=== PATIENT | female | born 1960 | race Caucasian/White ===

== ENCOUNTER 2019-03-01 19:04 | Emergency (ER) | payer OTHER ==
[~2019-03-01] VITALS: Ht 162.5 cm; Wt 108.9 kg
[~2019-03-01 19:04] MED LIST: BACTRIM DS 8001 TA1 PO; CITALOPRAM20 MG PO; KETOROLAC10 MG PO; MEDROL DOSEPAK4 MG PO; MOTRIN800 MG PO; Motrin,Rufen800 MG PO; PYRIDIUM200 MG PO; Synthroid,Levo25 MCG; TRAMADOL HCL50 MG PO; VITAMIN D1000 IU
== END 2019-03-01 21:00 | disposition home or self-care (01) ==
LOC: ED 19:04
DX: M79.671 Pain in right foot (principal); Z91.041 Radiographic dye allergy status; Z79.2 Long term (current) use of antibiotics; Z79.899 Other long term (current) drug therapy; X50.1XXA Overexertion from prolonged static or awkward postures, initial encounter; Y93.89 Activity, other specified; Y92.89 Other specified places as the place of occurrence of the external cause; Y99.8 Other external cause status

== ENCOUNTER 2020-06-13 22:11 | Emergency (ER) | payer OTHER ==
[~2020-06-13] VITALS: Ht 162.5 cm; Wt 104.3 kg
[2020-06-13 22:31] LABS: BILIRUBIN Negative (Negative); BLOOD Negative (Negative); CLARITY Cloudy (Clear); COLOR Yellow (Yellow); GLUCOSE Negative (Negative); KETONE Trace (Negative); LEUKO ESTERASE 2+ (Negative); NITRITE Negative (Negative); SPECIFIC GRAVITY >= 1.030 (1.001-1.030)
[2020-06-13 22:38] LABS: BASO % 0.3 % (0.0-1.0); EOS # 0.1 10*3/uL (0.0-0.4); EOS % 0.8 % (1.0-4.0); HEMATOCRIT 41.9 % (37.0-47.0); LYMPH # 2.2 10*3/uL (1.3-4.4); LYMPH % 35.6 % (27.0-41.0); MEAN CELL VOLUME 94.4 fl (81.0-99.0); MEAN CORPUSCULAR HGB 30.2 pg (27.0-31.0); MEAN PLATELET VOLUME 11.9 fl (9.6-12.3); MONO # 0.4 10*3/uL (0.1-1.0); MONO % 6.2 % (3.0-9.0); NEUT # 3.5 10*3/uL (2.3-7.9); NEUT % 56.9 % (47.0-73.0); PLATELET COUNT AUTOMATED 167 10*3/uL (130-400); RED BLOOD COUNT 4.44 10*6/uL (4.10-5.10); RED CELL DISTRI WIDTH 12.7 % (0-14.5); WHITE BLOOD COUNT 6.2 10*3/uL (4.8-10.8)
[2020-06-13 22:43] LABS: BACTERIA 1+; EPITHELIAL CELLS 21-30; WBC 16-20 wbc/hpf (0-5)
[2020-06-13 22:55] LABS: ALBUMIN 3.3 gm/dl (3.1-4.5); ALKALINE PHOSPHATASE 80 U/L (45-117); BUN 19 mg/dl (7-24); CHLORIDE 106 mmol/L (98-107); CREATININE 0.79 mg/dL (0.55-1.02); LIPASE 102 U/L (73-393); SGOT/AST 85 IU/L (3-35); SGPT/ALT 162 U/L (12-78); SODIUM 140 mmol/L (136-145); TOTAL PROTEIN 7.8 gm/dL (6.4-8.2)
== END 2020-06-14 03:19 | disposition short-term general hospital (02) ==
LOC: ED 22:11
PROVIDERS: Emergency Medicine
DX: K35.80 Unspecified acute appendicitis (principal); R10.9 Unspecified abdominal pain; Z79.899 Other long term (current) drug therapy

== ENCOUNTER 2022-11-05 12:21 | Inpatient (IN) | payer SELFPAY ==
[2022-11-05] VITALS (8 sets, daily range): BP systolic 121–208; BP diastolic 55–106
[~2022-11-05] VITALS: Ht 162.6 cm; Wt 108.5 kg
[~2022-11-05 12:21] MED LIST changes: -Synthroid,Levo25 MCG; +Synthroid,Levo25 MCG PO
[2022-11-05 13:46] LABS: BASO % 0.4 % (0.0-1.0); EOS % 0.4 % (1.0-4.0); HEMATOCRIT 44.6 % (37.0-47.0); LYMPH # 1.7 10*3/uL (1.3-4.4); MEAN CELL VOLUME 93.1 fl (81.0-99.0); MEAN CORPUSCULAR HGB 30.9 pg (27.0-31.0); MEAN CORPUSCULAR HGB CONC 33.2 g/dl (33.0-37.0); MEAN PLATELET VOLUME 12.6 fl (9.6-12.3); MONO # 0.6 10*3/uL (0.1-1.0); MONO % 8.3 % (3.0-9.0); NEUT # 4.9 10*3/uL (2.3-7.9); NEUT % 67.5 % (47.0-73.0); PLATELET COUNT AUTOMATED 175 10*3/uL (130-400); RED BLOOD COUNT 4.79 10*6/uL (4.10-5.10); RED CELL DISTRI WIDTH 12.5 % (0-14.5); WHITE BLOOD COUNT 7.3 10*3/uL (4.8-10.8)
[2022-11-05 14:08] LABS: ALKALINE PHOSPHATASE 88 U/L (46-116); BUN 8 mg/dl (9-23); CHLORIDE 108 mmol/L (98-107); POTASSIUM 3.9 mmol/L (3.4-5.1); SGPT/ALT 68 U/L (10-49); TOTAL PROTEIN 7.9 gm/dL (6.0-8.0)
[2022-11-06] VITALS: BP 158/75
[2022-11-06 07:22] LABS: BASO % 0.4 % (0.0-1.0); EOS # 0.1 10*3/uL (0.0-0.4); EOS % 0.9 % (1.0-4.0); HEMATOCRIT 40.4 % (37.0-47.0); LYMPH # 3.1 10*3/uL (1.3-4.4); LYMPH % 45.3 % (27.0-41.0); MEAN CORPUSCULAR HGB 30.9 pg (27.0-31.0); MEAN CORPUSCULAR HGB CONC 33.9 g/dl (33.0-37.0); MEAN PLATELET VOLUME 12.2 fl (9.6-12.3); MONO # 0.7 10*3/uL (0.1-1.0); NEUT # 2.9 10*3/uL (2.3-7.9); NEUT % 43.3 % (47.0-73.0); PLATELET COUNT AUTOMATED 164 10*3/uL (130-400); RED BLOOD COUNT 4.44 10*6/uL (4.10-5.10); RED CELL DISTRI WIDTH 12.6 % (0-14.5); WHITE BLOOD COUNT 6.7 10*3/uL (4.8-10.8)
[2022-11-06 08:00] VITALS: BP 156/72
[2022-11-06 08:02] LABS: ALKALINE PHOSPHATASE 77 U/L (46-116); BUN 9 mg/dl (9-23); CHLORIDE 106 mmol/L (98-107); CHOLESTEROL 218 mg/dL (<200); FREE T4 1.23 ng/dl (0.89-1.76); LDL CHOLESTEROL 152 mg/dL (9-159); POTASSIUM 3.8 mmol/L (3.4-5.1); SGPT/ALT 55 U/L (10-49); THYROID STIM HORMONE (HS) 2.115 uIU/ml (0.550-4.780); TOTAL PROTEIN 7.3 gm/dL (6.0-8.0); TRIGLYCERIDES 146 mg/dl (<150)
[2022-11-06 08:05] LABS: VITAMIN D, 25-HYDROXY 37.4 ng/mL (30-100)
[2022-11-06] MEDS ORDERED: SERTRALINE HYDR25 MG PO (08:52)
[2022-11-06] MEDS ORDERED: LISINOPRIL10 M1 PO (08:52)
== END 2022-11-06 10:04 | disposition home or self-care (01) | DRG 305 ==
LOC: ED 12:21 → EDHOLD 14:46 → 4E 19:38
PROVIDERS: Internal Medicine; Nurse Practitioner Family; ADMIT Internal Medicine; ATTEND Internal Medicine
DX: I16.1 Hypertensive emergency (principal); Z68.41 Body mass index [BMI] 40.0-44.9, adult; R74.01 Elevation of levels of liver transaminase levels; R73.9 Hyperglycemia, unspecified; E03.9 Hypothyroidism, unspecified; F41.9 Anxiety disorder, unspecified; E87.8 Other disorders of electrolyte and fluid balance, not elsewhere classified; E66.01 Morbid (severe) obesity due to excess calories; Z86.59 Personal history of other mental and behavioral disorders; Z90.49 Acquired absence of other specified parts of digestive tract; Z87.891 Personal history of nicotine dependence; Z91.041 Radiographic dye allergy status; Z82.49 Family history of ischemic heart disease and other diseases of the circulatory system; Z80.3 Family history of malignant neoplasm of breast; Z79.899 Other long term (current) drug therapy

== ENCOUNTER 2022-11-06 18:18 | Emergency (ER) | payer SELFPAY ==
[~2022-11-06 18:18] MED LIST changes: +LISINOPRIL10 M1 PO; +SERTRALINE HYDR25 MG PO
== END 2022-11-06 19:00 | disposition left against medical advice (07) ==
LOC: ED 18:18
DX: R04.0 Epistaxis (principal); Z53.21 Procedure and treatment not carried out due to patient leaving prior to being seen by health care provider

== ENCOUNTER 2022-12-18 21:51 | Emergency (ER) | payer SELFPAY ==
[~2022-12-18] VITALS: Ht 162.5 cm; Wt 136.1 kg
[2022-12-18] MEDS ORDERED: LEVOTHYROXINE75 MC1 PO (22:04)
[2022-12-18] MEDS ORDERED: CARVEDILOL3.125 MG PO (22:05)
[2022-12-18] MEDS ORDERED: ZOLOFT25 MG PO (22:05)
[2022-12-18] MEDS ORDERED: PRAZOSIN HYDROCH1 MG PO (22:06)
== END 2022-12-19 00:14 | disposition home or self-care (01) ==
LOC: ED 21:51
DX: I10 Essential (primary) hypertension (principal); F41.1 Generalized anxiety disorder; F43.0 Acute stress reaction; Z91.041 Radiographic dye allergy status; Z79.899 Other long term (current) drug therapy; Z90.49 Acquired absence of other specified parts of digestive tract; Z98.890 Other specified postprocedural states; Z98.51 Tubal ligation status; Z87.891 Personal history of nicotine dependence

== ENCOUNTER 2023-03-20 15:02 | Emergency (ER) | payer MEDICARE ==
[~2023-03-20] VITALS: Ht 162.5 cm; Wt 104.3 kg
[~2023-03-20 15:02] MED LIST changes: +CARVEDILOL3.125 MG PO; +LEVOTHYROXINE75 MC1 PO; +PRAZOSIN HYDROCH1 MG PO; +ZOLOFT25 MG PO
[2023-03-20] MEDS ORDERED: LISINOPRIL20 MG PO (16:34)
[2023-03-20 16:40] LABS: BASO % 0.4 % (0.0-1.0); EOS % 0.6 % (1.0-4.0); HEMATOCRIT 39.7 % (37.0-47.0); LYMPH # 1.8 10*3/uL (1.3-4.4); LYMPH % 26.2 % (27.0-41.0); MEAN CELL VOLUME 91.7 fl (81.0-99.0); MEAN CORPUSCULAR HGB 30.9 pg (27.0-31.0); MEAN CORPUSCULAR HGB CONC 33.8 g/dl (33.0-37.0); MEAN PLATELET VOLUME 12.7 fl (9.6-12.3); MONO # 0.6 10*3/uL (0.1-1.0); MONO % 8.5 % (3.0-9.0); NEUT # 4.4 10*3/uL (2.3-7.9); PLATELET COUNT AUTOMATED 165 10*3/uL (130-400); RED BLOOD COUNT 4.33 10*6/uL (4.10-5.10); RED CELL DISTRI WIDTH 12.6 % (0-14.5); WHITE BLOOD COUNT 6.9 10*3/uL (4.8-10.8)
[2023-03-20 17:03] LABS: ALKALINE PHOSPHATASE 74 U/L (46-116); BUN 11 mg/dl (9-23); CHLORIDE 105 mmol/L (98-107); POTASSIUM 3.9 mmol/L (3.4-5.1); SGPT/ALT 45 U/L (10-49); TOTAL PROTEIN 7.6 gm/dL (6.0-8.0)
== END 2023-03-20 17:20 | disposition home or self-care (01) ==
LOC: ED 15:02
PROVIDERS: Emergency Medicine
DX: I16.0 Hypertensive urgency (principal); R42 Dizziness and giddiness; Z91.041 Radiographic dye allergy status; Z90.49 Acquired absence of other specified parts of digestive tract; Z98.51 Tubal ligation status; Z98.890 Other specified postprocedural states; Z87.891 Personal history of nicotine dependence